=== PATIENT | female | born 1995 | race Caucasian/White ===

== ENCOUNTER 2018-11-08 11:47 | Outpatient (CLI) | payer OTHER ==
[2018-11-08] MEDS ORDERED: ONDANSETRON 4 MG/2 ML VIAL IVP STA (12:10)
[2018-11-08] MEDS ORDERED: LACTATED RINGERS 1,000 ML IV ONE (12:15)
[2018-11-08] MEDS ORDERED: LACTATED RINGERS 1,000 ML IV SCH ×3 (12:15→15:15)
[2018-11-08 12:31] LABS: Glucose,Whole Blood 92 mg/dL (75-99)
[2018-11-08 13:04] VITALS: BP 127/70; PULSE 115; RESP 17; TEMP 97.1
[2018-11-08 13:07] LABS: Appearance,Urine Cloudy (Clear); Bilirubin,Urine Negative (Negative); Blood,Urine Negative (Negative); Color,Urine Yellow; Glucose,Urine (UA) Negative (Negative); Ketones,Urine 4+ (Negative); Leukocyte Esterase,Urine Moderate (Negative); Mucus,Urine Occasional /hpf; Nitrite,Urine Negative (Negative); Protein,Urine 1+ (Negative); RBC,Urine <1 /hpf (0-5); Squamous Epithelial Cell,Urine 6 /hpf (0-4); WBC,Urine 3 /hpf (0-5)
--- NOTE | 2018-11-09 09:03 | P.MSEPDOC ---
Presenting Problems - Arrival Data Date of Arrival on Unit: 11/08/18 Time of Arrival on Unit: 11:47 Mode of Transport: Ambulatory - Complaint OB-Reason for Admission/Chief Complaint: Acute Nausea/Vomiting, Other Comment: pt here with c/o nausea, vomitting and diarrhea since 1899 last night, pt. unable to keep fluids down, last episode was prior to coming into the hospital, reports. + fm, denies contractions/cramping, reports having gdm with this , has not. checked any blood sugars today due to sleeping most of the day, abd soft and non tender,. denies lof/vb Medical History - Information : 3 Para: 2 Term: 2 : 0 Abortions: Spontaneous or Elective: 0 Number of Living Children: 2 - Gestational Age Gestational Age by DIANA (wks/days): 32 Weeks and 4 Days - History Complications: GDM Review of Systems - Review of Systems Constitutional: No problems Breast: No problems ENT: No problems Cardiovascular: No problems Respiratory: No problems Gastrointestinal: Diarrhea Genitourinary: No problems Musculoskeletal: No problems Neurological: No problems Skin: No problems Vital Signs - Temperature Temperature: 97.1 F Temperature Source: Temporal Artery Scan - Pulse Right Brachial Pulse Rate: 115 Pulse Assessment Method: Automatic Cuff - Respirations Respiratory Rate: 17 Oxygen Delivery Method: Room Air O2 Sat by Pulse Oximetry: 100 - Blood Pressure Right Arm Blood Pressure: 127/70 Blood Pressure Mean: 89 Blood Pressure Source: Automatic Cuff Medical Screen Scoring (Pre) - Cervical Exam Dilation: 0 cm = 0 Membranes: Intact - Uterine Contractions Frequency: > 5 minutes apart = 1 Duration: > 40 seconds = 2 Intensity: N/A - Maternal Vital Signs Maternal Temperature: N/A Maternal Blood Pressure: N/A Signs of Preeclampsia: N/A Maternal Respirations: N/A - Maternal Trauma Maternal Trauma: N/A - Assessment - Baby A Baseline FHR: 145 Heart Rate - NICHD Category: Category I (Normal) = 0 NST: Reactive Position: N/A Station: N/A - Total Score - Baby A Total Score - Baby A: 3 - Total Score - Baby B Total Score - Baby B: 3 - Total Score - Baby C Total Score - Baby C: 3 - Level of Risk - Baby A Level of Risk - Baby A: Low (0-5) - Level of Risk - Baby B Level of Risk - Baby B: Low (0-5) - Level of Risk - Baby C Level of Risk - Baby C: Low (0-5) Physician Notification (Pre) - Physician Notified Physician Notified Date: 11/08/18 Physician Notified Time: 12:10 Physician/Practitioner Notifed:: Dr Wilson Spoke With: Dr Steve Ratliff Order Received: Yes - Notification Comment Comment: orders given to access iv and bolus with LR, administer zofran, perform cervical exam and ffn, obtain accucheck and urine sample for urinalysis Medical Screen Scoring (Post) - Cervical Exam Dilation: Exam Deferred Effacement: Exam Deferred Membranes: Intact - Uterine Contractions Frequency: > 5 minutes apart = 1 Duration: > 40 seconds = 2 Intensity: N/A - Maternal Vital Signs Maternal Blood Pressure: N/A Signs of Preeclampsia: N/A Maternal Respirations: N/A - Maternal Trauma Maternal Trauma: N/A - Assessment - Baby A Heart Rate: 140 Heart Rate - NICHD Category: Category I (Normal) = 0 NST: Reactive Position: N/A Station: N/A - Total Score Total Score - Baby A: 3 Total Score - Baby B: 3 Total Score - Baby C: 3 - Post Treatment Level of Risk Post Treatment Level of Risk - Baby A: Low (0-5) Post Treatment Level of Risk - Baby B: N/A Post Treatment Level of Risk - Baby C: N/A Physician Notification (Post) - Physician Notified Physician Notified Date: 11/08/18 Physician Notified Time: 15:15 Physician/Practitioner Notified:: Dr Wilson Spoke With: Dr Steve Ratliff Order Received: Yes (dc home) - Notification Comment Comment: pt recieved 3 liters of LR, no further nausea/vomitting/diarrhea, denies contractions Disposition - Disposition OB Disposition: Discharge to home, Written follow up instructions reviewed Discharge Date: 11/08/18 Discharge Time: 16:45 I agree with the RN Medical Screening Exam: Yes Risk & Benefit of care provided described in d/c instruction: Yes Diagnosis: DEHYDRATION
== END 2018-11-08 16:45 | disposition home or self-care (01) ==
LOC: FBPOP 11:47
PROVIDERS: ATTEND Obstetrics & Gynecology
DX: O99.283 Endocrine, nutritional and metabolic diseases complicating pregnancy, third trimester (principal); E86.0 Dehydration; Z3A.32 32 weeks gestation of pregnancy
CPT/HCPCS: 59025; 96360; 96361; 96375; 81001; G0463; J2405; 99214

== ENCOUNTER 2018-12-20 21:52 | Outpatient (CLI) | payer OTHER ==
[2018-12-20 23:55] LABS: Appearance,Urine Clear (Clear); Bacteria,Urine Rare /hpf; Bilirubin,Urine Negative (Negative); Blood,Urine Negative (Negative); Color,Urine Light Yellow; Glucose,Urine (UA) Negative (Negative); Ketones,Urine Negative (Negative); Leukocyte Esterase,Urine Moderate (Negative); Mucus,Urine Rare /hpf; Nitrite,Urine Negative (Negative); PH, Urine 6.5 (5.0-8.0); Protein,Urine Negative (Negative); RBC,Urine 1 /hpf (0-5); Specific Gravity,Urine 1.006 (1.001-1.035); Squamous Epithelial Cell,Urine 4 /hpf (0-4); Urobilinogen,Urine <2.0 mg/dL (<2.0); WBC,Urine 16 /hpf (0-5)
[2018-12-21 00:30] VITALS: BP 134/88; PULSE 84; RESP 17; TEMP 98.2
--- NOTE | 2018-12-21 05:46 | P.MSEPDOC ---
Presenting Problems - Arrival Data Date of Arrival on Unit: 12/20/18 Time of Arrival on Unit: 21:52 Mode of Transport: Ambulatory - Complaint OB-Reason for Admission/Chief Complaint: Other Comment: Pelvic pressure x1-2 hours Medical History - Information : 3 Para: 2 Term: 2 : 0 Abortions: Spontaneous or Elective: 0 Number of Living Children: 2 - Gestational Age Gestational Age by DIANA (wks/days): 38 Weeks and 5 Days - History Complications: GDM Review of Systems - Review of Systems Constitutional: No problems Breast: No problems ENT: No problems Cardiovascular: No problems Respiratory: No problems Gastrointestinal: No problems Genitourinary: Increased frequency Musculoskeletal: No problems Neurological: No problems Skin: No problems Vital Signs - Temperature Temperature: 98.2 F Temperature Source: Oral - Pulse Pulse Oximetery Pulse Rate: 84 Pulse Assessment Method: Pulse Oximetry - Respirations Respiratory Rate: 17 Oxygen Delivery Method: Room Air O2 Sat by Pulse Oximetry: 99 - Blood Pressure Right Arm Blood Pressure: 134/88 Blood Pressure Mean: 103 Blood Pressure Source: Automatic Cuff Medical Screen Scoring (Pre) - Cervical Exam Dilation: 4-7 cm = 2 Effacement: More than 50% = 2 Membranes: Intact - Uterine Contractions Frequency: > 5 minutes apart = 1 Duration: > 40 seconds = 2 Intensity: N/A - Maternal Vital Signs Maternal Temperature: N/A Maternal Blood Pressure: N/A Signs of Preeclampsia: N/A Maternal Respirations: N/A - Maternal Trauma Maternal Trauma: N/A - Assessment - Baby A Baseline FHR: 130 Heart Rate - NICHD Category: Category I (Normal) = 0 NST: Reactive Position: N/A Station: N/A - Total Score - Baby A Total Score - Baby A: 7 - Total Score - Baby B Total Score - Baby B: 7 - Total Score - Baby C Total Score - Baby C: 7 - Level of Risk - Baby A Level of Risk - Baby A: Medium (6-9) - Level of Risk - Baby B Level of Risk - Baby B: Medium (6-9) - Level of Risk - Baby C Level of Risk - Baby C: Medium (6-9) Physician Notification (Pre) - Physician Notified Physician Notified Date: 12/20/18 Physician Notified Time: 22:28 Physician/Practitioner Notifed:: Dr. Wilson Spoke With: Dr. Wilson New Order Received: Yes - Notification Comment Comment: Report given on maternal/ status, complaint of pelvic pressure and increased frequency with urination, contractions irregular, sterile vag exam 4- 5cm/80%. Orders to recheck pt in 1 hour and send a UA Disposition - Disposition OB Disposition: Observe Discharge Date: 12/21/18 Discharge Time: 00:20 I agree with the RN Medical Screening Exam: Yes Risk & Benefit of care provided described in d/c instruction: Yes Diagnosis: FALSE LABOR AT OR AFTER 37 COMPLETED WEEKS OF GESTATION
== END 2018-12-21 00:20 | disposition home or self-care (01) ==
LOC: FBPOP 21:52
PROVIDERS: ATTEND Obstetrics & Gynecology
DX: O47.1 False labor at or after 37 completed weeks of gestation (principal); Z3A.38 38 weeks gestation of pregnancy
CPT/HCPCS: 59025; 81001; 87086; G0463; 99213

== ENCOUNTER 2018-12-23 09:17 | Inpatient (IN) | payer OTHER ==
[2018-12-23] MEDS ORDERED: TERBUTALINE 1 MG/ML VIAL SQ PRN (09:45)
[2018-12-23] MEDS ORDERED: LIDOCAINE 0.5% (PF) 5 MG/ML (50 ML SDV) SQ PRN (09:45)
[2018-12-23] MEDS ORDERED: OXYTOCIN 10 UNIT/ML 1 ML VIAL IM PRN (09:45)
[2018-12-23] MEDS ORDERED: METHYLERGONOVINE 0.2 MG/ML 1 ML AMP IM PRN (09:45)
[2018-12-23] MEDS ORDERED: CARBOPROST TROMETHAMINE 250 MCG/ML 1 ML AMP IM PRN (09:45)
[2018-12-23 09:55] VITALS: RESP 16; BMI 32.2
[2018-12-23] MEDS: LACTATED RINGERS 1,000 ML IV SCH ×2 (10:26→10:37)
[2018-12-23] MEDS ORDERED: OXYTOCIN 30 UNITS/500 ML NS 30 UNIT in SALINE 1 500ML.BAG IV SCH (10:30)
[2018-12-23 10:39] LABS: Appearance,Urine Clear (Clear); Bacteria,Urine Rare /hpf; Bilirubin,Urine Negative (Negative); Blood,Urine Moderate (Negative); Color,Urine Light Yellow; Glucose,Urine (UA) Negative (Negative); Ketones,Urine Negative (Negative); Leukocyte Esterase,Urine Large (Negative); Nitrite,Urine Negative (Negative); PH, Urine 6.5 (5.0-8.0); Protein,Urine Negative (Negative); RBC,Urine 2 /hpf (0-5); Specific Gravity,Urine 1.004 (1.001-1.035); Squamous Epithelial Cell,Urine 5 /hpf (0-4); Urobilinogen,Urine <2.0 mg/dL (<2.0); WBC,Urine 15 /hpf (0-5)
[2018-12-23 10:43] LABS: Anisocytosis Slight; Basophils % (A) 0 %; Eosinophils # (A) 0.1 k/uL (0-0.7); Eosinophils % (A) 1 %; HCT 28.4 % (34.0-46.0); HGB 8.7 gm/dL (11.4-16.0); Hypochromasia Marked; Lymphocytes # (A) 1.5 k/uL (1.0-4.8); Lymphocytes % (A) 22 %; MCH 21.3 pg (25.0-35.0); MCHC 30.6 g/dL (31.0-37.0); MCV 69.8 fL (80.0-100.0); Mean Platelet Volume 7.9; Microcytosis Marked; Monocytes # (A) 0.3 k/uL (0-1.0); Monocytes % (A) 4 %; Neutrophils # (A) 4.6 k/uL (1.3-7.7); Neutrophils % (A) 70 %; Platelet Count 217 k/uL (150-450); Poikilocytosis Slight; RBC 4.07 m/uL (3.80-5.40); RDW 16.5 % (11.5-15.5); WBC 6.5 k/uL (3.8-10.6)
[2018-12-23 10:44] LABS: ALT 15 U/L (9-52); AST 15 U/L (14-36); African American GFR (CKD) >90 (>60 ml/min/1.73 sqM); Blood Urea Nitrogen 6 mg/dL (7-17); LDH 398 U/L (313-618)
[2018-12-23 11:17] LABS: INR 0.9 (<1.2); Prothrombin Time 9.4 sec (9.0-12.0)
[2018-12-23] MEDS ORDERED: ROPIVACAINE 100 MG, fentaNYL (PF) 200 MCG in SODIUM CHLORIDE 0.9% 76 ML EPIDURAL ONE (11:40)
[2018-12-23] MEDS ORDERED: WITCH HAZEL 1 EACH MED..PAD TOPICAL PRN (12:37)
[2018-12-23] MEDS ORDERED: diphenhydrAMINE 50 MG/ML 1 ML VIAL IVP PRN ×2 (12:37)
[2018-12-23] MEDS ORDERED: diphenhydrAMINE 50 MG CAP PO PRN (12:37)
[2018-12-23] MEDS ORDERED: LANOLIN CREAM 5 GM TUBE TOPICAL PRN (12:37)
[2018-12-23] MEDS ORDERED: HYDROCORTISONE 2.5% RECTAL CREAM 30 GM TUBE RECTAL PRN (12:37)
[2018-12-23] MEDS ORDERED: BENZOCAINE/MENTHOL SPRAY 1 GM/SPRAY AEROSOL TOPICAL PRN (12:37)
[2018-12-23] MEDS ORDERED: diphenhydrAMINE 25 MG CAP PO PRN (12:37)
[2018-12-23] MEDS ORDERED: ZOLPIDEM 5 MG TAB PO PRN (12:37)
[2018-12-23] MEDS ORDERED: IBUPROFEN 600 MG TAB PO PRN (12:37)
[2018-12-23] MEDS ORDERED: SIMETHICONE 80 MG CHEWABLE PO PRN (12:37)
[2018-12-23] MEDS ORDERED: ACETAMINOPHEN TAB 325 MG TAB PO PRN (12:37)
--- NOTE | 2018-12-23 12:40 | P.HPOB ---
History of Present Illness H&P Date: 12/23/18 Chief Complaint: Intrauterine at term: Advanced cervical dilatation Sparkle is a 23 old at 39 weeks gestation who arrives dilated to 5-1/2 cm. Although she is having irregular contractions she has significant dilation and would prefer to have her baby today rather than wait. Her Precis course has been, complicated by gestational diabetes. It was diet controlled and she did have nonstress test through the latter part of the . No other issues or problems with the . She is transferred to my care at approximately 26 weeks. Pertinent labs do include A+ blood type, Rh and it was negative. Rubella was immune. Hepatitis B surface antigen RPR and HIV are all negative. On physical exam vital signs are stable and afebrile. Heart regular, lungs clear, extremities are without pain. Abdomen is soft gravid uterus is noted. Category 1 tracing is noted. She was dilated to 5-1/2 cm 70% effaced -2 station. Artificial rupture membranes was performed and clear fluid is noted. We'll plan Pitocin augmentation of labor. Assessment intrauterine at term Plan expect spontaneous vaginal delivery and she plans to use epidural for analgesia. Past Medical History Past Medical History: No Reported History History of Any Multi-Drug Resistant Organisms: None Reported Additional Past Surgical History / Comment(s): Widom Tooth Extraction Past Anesthesia/Blood Transfusion Reactions: No Reported Reaction Past Psychological History: No Psychological Hx Reported Smoking Status: Never smoker Past Alcohol Use History: None Reported Past Drug Use History: None Reported - Past Family History Mother Family Medical History: No Reported History Medications and Allergies Home Medications Medication Instructions Recorded Confirmed Type Ferrous Sulfate [Iron] 325 mg PO DAILY 11/08/18 12/23/18 History Pnv No.95/Ferrous Fum/Folic AC 1 each PO DAILY 11/08/18 12/23/18 History [ Multivitamin Tablet] Allergies Allergy/AdvReac Type Severity Reaction Status Date / Time No Known Allergies Allergy Verified 12/23/18 09:44 Exam Osteopathic Statement: *. No significant issues noted on an osteopathic structural exam other than those noted in the History and Physical/Consult. Vital Signs Temp Pulse Resp BP Pulse Ox 12/23/18 09:50 96.6 F L 94 16 144/86 100 Intake and Output 07/27/19 07/28/19 07/28/19 22:59 06:59 14:59 Intake Total 1000 Balance 1000 Intake: Intake, IV Titration 1000 Amount Lactated Ringers 1,000 ml 1000 @ 125 mls/hr IV .Q8H [facility] Rx#:[id number] Other: # Voids 1 Weight 85.275 kg Results Result Diagrams: 12/23/18 10:20 12/23/18 10:20 Abnormal Lab Results - Last 24 Hours (Table) 12/23/18 12/23/18 12/23/18 Range/Units 10:20 10:20 10:20 Hgb 8.7 L (11.4-16.0) gm/dL Hct 28.4 L (34.0-46.0) % MCV 69.8 L (80.0-100.0) fL MCH 21.3 L (25.0-35.0) pg MCHC 30.6 L (31.0-37.0) g/dL RDW 16.5 H (11.5-15.5) % BUN 6 L (7-17) mg/dL Creatinine 0.48 L (0.52-1.04) mg/dL Urine Blood Moderate H (Negative) Ur Leukocyte Esterase Large H (Negative) Urine WBC 15 H (0-5) /hpf Ur Squamous Epith Cells 5 H (0-4) /hpf Urine Bacteria Rare H (None) /hpf
--- NOTE | 2018-12-23 12:41 | P.PROBDLV ---
Vaginal Delivery Note - . Vaginal Delivery Note: Patient progressed complete and pushed with spontaneous vaginal delivery of a viable male over an intact perineum. Falling deliver the head anterior posterior shoulders were easily delivered with gentle downward upper traction on the baby was delivered from right occiput anterior position. Once baby was fully delivered mouth nares were bulb suctioned and baby was placed on mother's abdomen where the umbilical cord was clamped cut usual fashion following 30 seconds of pulsation. Nursery personnel was present to assume care. Placenta was then delivered intact and Pitocin was added to the IV. scores were 8 and 9 at one and 5 minutes respectively and the weight is pending. Both mother and baby are stable following delivery.
[2018-12-23] MEDS ORDERED: OXYTOCIN 20 UNITS/1000 ML NS 1,000 ML IV SCH (12:45)
[2018-12-23] MEDS: SENNOSIDES-DOCUSATE SODIUM 1 EACH TAB PO SCH (22:43)
--- NOTE | 2018-12-24 07:55 | P.DS ---
Providers Date of admission: 12/23/18 09:35 Expected date of discharge: 12/24/18 Attending physician: Rivas Sorensen Primary care physician: Stated None Hospital Course: Sparkle is doing very well day 1. She is stable for discharge at this time. doing very well day 1. She is ambulating, voiding, tolerating her diet. She voices no complaints and is requesting discharge home today. Vital signs are stable and afebrile. Heart regular, lungs clear, extremities without pain. Abdomen soft uterus is firm and lochia is reported be light. Assessment day 1. Plan discharged home follow up with me in 6 weeks All questions were answered for her prior to discharge and discharge instructions were thoroughly reviewed. Patient Condition at Discharge: Good Plan - Discharge Summary New Discharge Prescriptions: No Action Pnv No.95/Ferrous Fum/Folic AC [ Multivitamin Tablet] 1 each PO DAILY Ferrous Sulfate [Iron] 325 mg PO DAILY Discharge Medication List Ferrous Sulfate [Iron] 325 mg PO DAILY 11/08/18 [History] Pnv No.95/Ferrous Fum/Folic AC [ Multivitamin Tablet] 1 each PO DAILY 11/08/18 [History] Follow up Appointment(s)/Referral(s): Rivas Sorensen DO [Doctor of Osteopathic Medicine] - 6 Weeks Activity/Diet/Wound Care/Special Instructions: No heavy lifting, limit stairs and driving, and pelvic rest. If any high temperatures, heavy bleeding, or severe pain call my office Discharge Disposition: HOME SELF-CARE
[2018-12-24 09:51] VITALS: BP 137/78; PULSE 61; TEMP 98.2
[2018-12-24] MEDS: SENNOSIDES-DOCUSATE SODIUM 1 EACH TAB PO SCH (09:52)
== END 2018-12-24 15:00 | disposition home or self-care (01) | DRG 807 ==
LOC: FBPOP 09:17 → 4FBP 09:35
PROVIDERS: ADMIT Obstetrics & Gynecology; ATTEND Obstetrics & Gynecology
PROC: 10E0XZZ Delivery of Products of Conception, External Approach (ICD-10-PCS; principal; 2018-12-23)
PROC: 00HU33Z Insertion of Infusion Device into Spinal Canal, Percutaneous Approach (ICD-10-PCS; 2018-12-23)
PROC: 3E0R3BZ Introduction of Anesthetic Agent into Spinal Canal, Percutaneous Approach (ICD-10-PCS; 2018-12-23)
DX: O24.429 Gestational diabetes mellitus in childbirth, unspecified control (principal); Z37.0 Single live birth; Z3A.39 39 weeks gestation of pregnancy
CPT/HCPCS: 59025; 81001; 82565; 82570; 83615; 84450; 84460; 84520; 84550; 85025; 85384; 85610; 85730; 86850; 86900; 86901; 99213

== ENCOUNTER → 2019-02-04 | Outpatient (CLI) | payer OTHER | END | disposition home or self-care (01) | LOC: LABWHC1 14:17 | PROVIDERS: ATTEND Obstetrics & Gynecology | DX: Z34.90 Encounter for supervision of normal pregnancy, unspecified, unspecified trimester (principal) | CPT/HCPCS: 36415; 84702 ==

== ENCOUNTER → 2023-03-23 | Outpatient (CLI) | payer OTHER ==
--- NOTE | 2023-03-23 13:43 | US ---
EXAMINATION TYPE: US OB anatomy transabd DATE OF EXAM: 03/23/2023 COMPARISON: NONE CLINICAL INDICATION: Female, 27 years old with history of O83.5XXO MATERNAL CARE FOR OTH ABNORM ALITY A; TECHNIQUE: Transabdominal (TA) EXAM MEASUREMENTS: GESTATIONAL AGE / DATING Physician Established: (25 weeks/2 days) EDC: 07/04/23 Dates by LMP: unknown Dates by First Scan: no prior exam Dates by Current Scan for: (27 weeks/1 days) EDC: 06/21/23 SURVEY IUP: Single PLACENTA: Posterior PREVIA: No previa TERRANCE: 14.1 cm normal CERVICAL LENGTH (transabdominal: norm > 3.0cm): 5.0 cm BIOMETRY PRESENTATION: Breech LIE: Transverse lie with head maternal RT BPD: 6.5 cm 26 weeks / 2 days HC: 24.7 cm 26 weeks / 6 days AC: 23.1 cm 27 weeks / 4 days FL: 5.1 cm 27 weeks / 3 days ESTIMATED WEIGHT IN GRAMS: 1050 grams ESTIMATED WEIGHT IN LBS/OZ: 2 lbs. 5 oz. WEIGHT PERCENTAGE BASED ON ESTABLISHED DATE: 98 % HC/AC: 1.07 Normal FL/AC: 22% Normal HEART RATE: 152 bpm RHYTHM: Normal ANATOMY SEEN (within normal limits): * Lateral Vent (< 1 cm) 0.5 cm * Cisterna Magna (< 1.1 cm) 0.5 cm * Nuchal Fold (< 0.6 cm) 0.3 cm * Cerebellum (varies with age) 2.6 cm Choroid Plexus (bilateral) Midline Falx Cavus Septi Pellucidi Four Chamber Heart Outflow tracts: LVOT/RVOT Stomach Situs Nose / Lips Diaphragm Kidneys (bilateral) Bladder Cord Insert Three Vessel Cord Longitudinal Spine Transverse Spine Arms (bilateral) Legs (bilateral) IMPRESSION: Single live intrauterine gestation 27 weeks 1 day. Additional information as described above.
== END | disposition home or self-care (01) ==
LOC: RADUSWWP 12:17
PROVIDERS: ATTEND Obstetrics & Gynecology
DX: O35.8XX0 Maternal care for other (suspected) fetal abnormality and damage, not applicable or unspecified (principal); Z3A.28 28 weeks gestation of pregnancy
CPT/HCPCS: 76811